=== PATIENT | male | born 1960 | race Two or more races ===

== ENCOUNTER 2016-04-23 09:53 | Outpatient (CLI) | payer BC, OTHER ==
[~2016-04-23 09:53] MED LIST: PANT40VI IV
[2016-04-23 10:56] LABS: ADD UA MICROSCOPIC NO; KETONES,URINE NEGATIVE (NEGATIVE); LEUKOCYTE ESTERASE ,URINE NEGATIVE (NEGATIVE)
[2016-04-23 11:07] LABS: ALBUMIN 3.8 g/dL (3.4-5.0); BILIRUBIN,TOTAL 0.5 mg/dL (0.2-1.0); CALCIUM, SERUM 8.9 mg/dL (8.5-10.1); CREATININE 0.9 mg/dL (0.6-1.3); POTASSIUM 5.4 mmol/L (3.5-5.1); TOTAL PROTEIN, SERUM 7.8 g/dL (6.4-8.2)
[2016-04-23 11:17] LABS: THYROID STIMULATING HORMONE 6.21 uIU/mL (0.358-3.74)
== END 2016-04-23 23:59 | disposition home or self-care (01) ==
LOC: LAB 09:53
PROVIDERS: ATTEND Family Medicine
DX: Z00.01 Encounter for general adult medical examination with abnormal findings (principal); R00.0 Tachycardia, unspecified; Z12.11 Encounter for screening for malignant neoplasm of colon
CPT/HCPCS: 36415; 80053-TC; 80061-TC; 81000-TC; 82272-TC; 84436-TC; 84443-TC; 93307-TC

== ENCOUNTER 2016-05-02 09:59 | Outpatient (CLI) | payer BC, OTHER ==
[2016-05-03 14:11] LABS: THYROID PEROXIDASE (TPO) AB >600 IU/mL (0-34)
[2016-05-07 03:08] LABS: *THYROGLOBULIN 51.9 IU/mL (0.0-0.9)
== END 2016-05-02 23:59 | disposition home or self-care (01) ==
LOC: LAB 09:59
PROVIDERS: ATTEND Family Medicine
DX: I51.7 Cardiomegaly (principal); R68.84 Jaw pain; E03.9 Hypothyroidism, unspecified
CPT/HCPCS: 36415; 70110-TC; 71010-TC; 86376

== ENCOUNTER 2016-05-06 08:51 | Outpatient (CLI) | payer BC, OTHER | END 2016-05-06 23:59 | disposition home or self-care (01) | LOC: US 08:51 | PROVIDERS: ATTEND Family Medicine | DX: E03.9 Hypothyroidism, unspecified (principal); E04.2 Nontoxic multinodular goiter | CPT/HCPCS: 76536-TC ==

== ENCOUNTER 2016-06-09 08:47 | Outpatient (CLI) | payer BC, OTHER | END 2016-06-09 23:59 | disposition home or self-care (01) | LOC: RAD 08:47 | PROVIDERS: ATTEND Family Medicine | DX: E04.1 Nontoxic single thyroid nodule (principal) | CPT/HCPCS: 78014; A9516 ==

== ENCOUNTER 2016-08-07 08:32 | Outpatient (CLI) | payer BC, OTHER ==
[2016-08-07 09:44] LABS: CHOLESTEROL 154 mg/dL (<200); HDL CHOLESTEROL 49 mg/dL (40-60); LDL 87 mg/dL (0-99); TRIGLYCERIDES 79 mg/dL (30-150)
== END 2016-08-07 23:59 | disposition home or self-care (01) ==
LOC: LAB 08:32
PROVIDERS: ATTEND Family Medicine
DX: E78.5 Hyperlipidemia, unspecified (principal); E55.9 Vitamin D deficiency, unspecified; R73.01 Impaired fasting glucose
CPT/HCPCS: 36415; 80061-TC; 82306

== ENCOUNTER 2016-09-15 08:42 | Outpatient (CLI) | payer BC, OTHER ==
[2016-09-15 09:24] LABS: CREATININE 0.9 mg/dL (0.6-1.3); POTASSIUM 4.2 mmol/L (3.5-5.1)
== END 2016-09-15 23:59 | disposition home or self-care (01) ==
LOC: LAB 08:42
PROVIDERS: ATTEND Family Medicine
DX: R73.01 Impaired fasting glucose (principal)
CPT/HCPCS: 36415; 80048-TC

== ENCOUNTER 2016-09-18 15:30 | Outpatient (CLI) | payer BC, OTHER | END 2016-09-18 23:59 | disposition home or self-care (01) | LOC: US 15:30 | DX: E04.1 Nontoxic single thyroid nodule (principal) | CPT/HCPCS: 76942-TC ==

== ENCOUNTER 2017-09-18 08:19 | Outpatient (CLI) | payer BC, OTHER ==
[2017-09-18 09:37] LABS: BASOPHILS % (AUTO) 0.8 % (0.0-2.0); HEMATOCRIT 43 % (39-51); HEMOGLOBIN 14.5 g/dL (13.5-17.5); LYMPHOCYTES # (AUTO) 1.4 /CMM (0.8-4.8); LYMPHOCYTES % (AUTO) 30.2 % (20.0-44.0); MEAN CORPUSCULAR HGB CONC 34 g/dl (31.0-36.0); MEAN CORPUSCULAR VOLUME 93 fL (80-96); MONOCYTES # (AUTO) 0.6 /CMM (0.1-1.30); MONOCYTES % (AUTO) 11.8 % (2.0-12.0); NEUTROPHILS # (AUTO) 2.6 /CMM (1.8-8.9); NEUTROPHILS % (AUTO) 54.2 % (43.0-81.0); PLATELET COUNT (AUTO) 276 /CMM (150-450); RDW COEFFICIENT OF VARIATION 13.1 (11.5-15.0); RED BLOOD CELL COUNT(AUTO) 4.63 MIL/uL (4.5-6.0); WHITE BLOOD COUNT (AUTO) 4.7 K/uL (4.3-11.0)
[2017-09-18 10:10] LABS: ALBUMIN 3.6 g/dL (3.4-5.0); BILIRUBIN,TOTAL 0.7 mg/dL (0.2-1.0); CALCIUM, SERUM 8.9 mg/dL (8.5-10.1); CREATININE 0.9 mg/dL (0.6-1.3); POTASSIUM 4.1 mmol/L (3.5-5.1); TOTAL PROTEIN, SERUM 7.7 g/dL (6.4-8.2)
[2017-09-18 10:18] LABS: FREE T4 (FREE THYROXINE) 0.88 ng/dL (0.76-1.46); THYROID STIMULATING HORMONE 9.913 uIU/mL (0.358-3.74)
== END 2017-09-18 23:59 | disposition home or self-care (01) ==
LOC: LAB 08:19
PROVIDERS: ATTEND Family Medicine
DX: E03.9 Hypothyroidism, unspecified (principal)
CPT/HCPCS: 36415; 80053-TC; 80061-TC; 82306; 84439-TC; 84443-TC; 85025-TC

== ENCOUNTER 2017-10-23 09:01 | Outpatient (CLI) | payer BC | END 2017-10-23 23:59 | disposition home or self-care (01) | LOC: CT 09:01 | PROVIDERS: ATTEND Family Medicine | DX: R09.89 Other specified symptoms and signs involving the circulatory and respiratory systems (principal) | CPT/HCPCS: 70450-TC ==

== ENCOUNTER 2017-12-04 09:27 | Outpatient (CLI) | payer BC ==
[2017-12-04 10:36] LABS: EOSINOPHILS % (AUTO) 3.3 % (0.0-6.0); HEMATOCRIT 42 % (39-51); HEMOGLOBIN 14.1 g/dL (13.5-17.5); LYMPHOCYTES # (AUTO) 1.3 /CMM (0.8-4.8); LYMPHOCYTES % (AUTO) 27.2 % (20.0-44.0); MEAN CORPUSCULAR HEMOGLOBIN 31 PG (26.0-33.0); MEAN CORPUSCULAR HGB CONC 33 g/dl (31.0-36.0); MEAN CORPUSCULAR VOLUME 93 fL (80-96); MONOCYTES # (AUTO) 0.4 /CMM (0.1-1.30); MONOCYTES % (AUTO) 8.8 % (2.0-12.0); NEUTROPHILS # (AUTO) 2.9 /CMM (1.8-8.9); NEUTROPHILS % (AUTO) 59.7 % (43.0-81.0); PLATELET COUNT (AUTO) 291 /CMM (150-450); RDW COEFFICIENT OF VARIATION 13.4 (11.5-15.0); RED BLOOD CELL COUNT(AUTO) 4.52 MIL/uL (4.5-6.0); WHITE BLOOD COUNT (AUTO) 4.8 K/uL (4.3-11.0)
[2017-12-04 10:39] LABS: APPEARANCE,URINE CLEAR (CLEAR); BILIRUBIN,URINE NEGATIVE (NEGATIVE); BLOOD, URINE NEGATIVE Ery/uL (NEGATIVE); COLOR,URINE YELLOW (YELLOW); KETONES,URINE NEGATIVE (NEGATIVE); LEUKOCYTE ESTERASE ,URINE NEGATIVE (NEGATIVE); NITRITE, URINE NEGATIVE (NEGATIVE); PH,URINE 6.5 (5.0-8.0); PROTEIN,URINE NEGATIVE (NEGATIVE); UGLUCOSE NEGATIVE (NEGATIVE); UROBILINOGEN,URINE 0.2 EU/dL (0.2)
[2017-12-04 10:54] LABS: ALBUMIN 3.6 g/dL (3.4-5.0); BILIRUBIN,TOTAL 0.6 mg/dL (0.2-1.0); CALCIUM, SERUM 8.3 mg/dL (8.5-10.1); POTASSIUM 4.1 mmol/L (3.5-5.1); TOTAL PROTEIN, SERUM 7.6 g/dL (6.4-8.2)
[2017-12-04 10:59] LABS: FREE T4 (FREE THYROXINE) 0.92 ng/dL (0.76-1.46); THYROID STIMULATING HORMONE 5.412 uIU/mL (0.358-3.74)
== END 2017-12-04 23:59 | disposition home or self-care (01) ==
LOC: LAB 09:27
PROVIDERS: ATTEND Family Medicine
DX: Z00.01 Encounter for general adult medical examination with abnormal findings (principal); Z11.59 Encounter for screening for other viral diseases; M19.90 Unspecified osteoarthritis, unspecified site
CPT/HCPCS: 36415; 71046; 80053-TC; 80061-TC; 81000-TC; 82306; 84439-TC; 84443-TC; 85025-TC; 86803

== ENCOUNTER 2019-03-08 08:49 | Outpatient (CLI) | payer BC ==
[2019-03-08 09:32] LABS: CREATININE 0.9 mg/dL (0.6-1.3)
== END 2019-03-08 23:59 | disposition home or self-care (01) ==
LOC: LAB 08:49
PROVIDERS: ATTEND Family Medicine
DX: R20.9 Unspecified disturbances of skin sensation (principal); M19.90 Unspecified osteoarthritis, unspecified site; Z87.891 Personal history of nicotine dependence
CPT/HCPCS: 36415; 82565-TC; 84520-TC

== ENCOUNTER 2019-03-14 13:58 | Outpatient (CLI) | payer BC | END 2019-03-14 23:59 | disposition home or self-care (01) | LOC: MRI 13:58 | PROVIDERS: ATTEND Family Medicine | DX: M48.061 Spinal stenosis, lumbar region without neurogenic claudication (principal); M48.07 Spinal stenosis, lumbosacral region; M51.27 Other intervertebral disc displacement, lumbosacral region; M47.812 Spondylosis without myelopathy or radiculopathy, cervical region; G93.0 Cerebral cysts; M53.87 Other specified dorsopathies, lumbosacral region; M25.78 Osteophyte, vertebrae; M89.48 Other hypertrophic osteoarthropathy, other site; M12.88 Other specific arthropathies, not elsewhere classified, other specified site; M46.02 Spinal enthesopathy, cervical region; M48.02 Spinal stenosis, cervical region; J34.89 Other specified disorders of nose and nasal sinuses; Z87.891 Personal history of nicotine dependence | CPT/HCPCS: 70551-TC; 72141-TC; 72148-TC ==

== ENCOUNTER 2019-09-20 08:41 | Outpatient (CLI) | payer BC | END 2019-09-20 23:59 | disposition home or self-care (01) | LOC: CT 08:41 | PROVIDERS: ATTEND Family Medicine | DX: G93.0 Cerebral cysts (principal) | CPT/HCPCS: 70450-TC ==

== ENCOUNTER 2020-12-25 10:30 | Outpatient (CLI) | payer BC ==
[2020-12-25 16:11] LABS: BASOPHILS % (AUTO) 0.6 % (0.0-2.0); EOSINOPHILS % (AUTO) 1.7 % (0.0-6.0); HEMATOCRIT 43 % (39-51); HEMOGLOBIN 14.4 g/dL (13.5-17.5); LYMPHOCYTES # (AUTO) 1.3 K/uL (0.8-4.8); LYMPHOCYTES % (AUTO) 27.9 % (20.0-44.0); MEAN CORPUSCULAR HGB CONC 33 g/dl (31.0-36.0); MEAN CORPUSCULAR VOLUME 96 fL (80-96); MONOCYTES # (AUTO) 0.5 K/uL (0.1-1.30); MONOCYTES % (AUTO) 10.4 % (2.0-12.0); NEUTROPHILS # (AUTO) 2.7 K/uL (1.8-8.9); NEUTROPHILS % (AUTO) 59.4 % (43.0-81.0); PLATELET COUNT (AUTO) 275 K/uL (150-450); RED BLOOD CELL COUNT(AUTO) 4.54 MIL/uL (4.5-6.0); WHITE BLOOD COUNT (AUTO) 4.5 K/uL (4.3-11.0)
[2020-12-25 16:21] LABS: BILIRUBIN,URINE NEGATIVE (NEGATIVE); COLOR,URINE YELLOW (YELLOW); LEUKOCYTE ESTERASE ,URINE NEGATIVE (NEGATIVE); NITRITE, URINE NEGATIVE (NEGATIVE); PROTEIN,URINE NEGATIVE (NEGATIVE); UGLUCOSE NEGATIVE (NEGATIVE); UROBILINOGEN,URINE 0.2 EU/dL (0.2)
[2020-12-25 16:37] LABS: PROSTATE SPECIFIC ANTIGEN SCR 0.89 ng/mL (0.00-4.00); THYROID STIMULATING HORMONE 7.171 uIU/mL (0.358-3.74); URIC ACID 5.9 mg/dL (2.6-7.2)
[2020-12-25 16:53] LABS: ALBUMIN 3.9 g/dL (3.4-5.0); BILIRUBIN,TOTAL 0.6 mg/dL (0.2-1.0); CALCIUM, SERUM 8.5 mg/dL (8.5-10.1); CREATININE 0.8 mg/dL (0.6-1.3); POTASSIUM 4.2 mmol/L (3.5-5.1); TOTAL PROTEIN, SERUM 7.8 g/dL (6.4-8.2)
[2020-12-26 05:07] LABS: T3, FREE 2.7 pg/mL (2.0-4.4)
== END 2020-12-25 23:59 | disposition home or self-care (01) ==
LOC: LAB 10:30
PROVIDERS: ATTEND Family Medicine
DX: E78.2 Mixed hyperlipidemia (principal); E03.9 Hypothyroidism, unspecified; E55.9 Vitamin D deficiency, unspecified; Z00.00 Encounter for general adult medical examination without abnormal findings; Z79.899 Other long term (current) drug therapy
CPT/HCPCS: 36415; 80053-TC; 80061-TC; 82306; 82607-TC; 84153-TC; 84439-TC; 84443-TC; 84481; 84550-TC; 85025-TC

== ENCOUNTER 2021-03-11 13:00 | Outpatient (CLI) | payer BC | END 2021-03-11 23:59 | disposition home or self-care (01) | LOC: LAB 13:00 | PROVIDERS: ATTEND Family Medicine | DX: M47.816 Spondylosis without myelopathy or radiculopathy, lumbar region (principal); M48.07 Spinal stenosis, lumbosacral region; G62.9 Polyneuropathy, unspecified; M25.50 Pain in unspecified joint | CPT/HCPCS: 36415; 72148-TC; 84550-TC; 85652-TC; 86431-TC ==

== ENCOUNTER 2021-10-30 14:26 | Outpatient (CLI) | payer BC | END 2021-10-30 23:59 | disposition home or self-care (01) | LOC: MRI 14:26 | PROVIDERS: ATTEND Family Medicine | DX: Z75.3 Unavailability and inaccessibility of health-care facilities (principal) ==

== ENCOUNTER 2022-04-16 11:22 | Outpatient (CLI) | payer BC ==
[2022-04-16 12:19] LABS: BASOPHILS % (AUTO) 0.4 % (0.0-2.0); EOSINOPHILS % (AUTO) 0.2 % (0.0-6.0); HEMATOCRIT 42 % (39-51); HEMOGLOBIN 13.9 g/dL (13.5-17.5); LYMPHOCYTES # (AUTO) 1.3 K/uL (0.8-4.8); LYMPHOCYTES % (AUTO) 10.2 % (20.0-44.0); MEAN CORPUSCULAR HGB CONC 33 g/dl (31.0-36.0); MEAN CORPUSCULAR VOLUME 93 fL (80-96); MONOCYTES # (AUTO) 1.1 K/uL (0.1-1.30); NEUTROPHILS % (AUTO) 80.2 % (43.0-81.0); PLATELET COUNT (AUTO) 254 K/uL (150-450); RED BLOOD CELL COUNT(AUTO) 4.54 MIL/uL (4.5-6.0); WHITE BLOOD COUNT (AUTO) 12.5 K/uL (4.3-11.0)
[2022-04-16 12:27] LABS: BILIRUBIN,URINE NEGATIVE (NEGATIVE); COLOR,URINE YELLOW (YELLOW); LEUKOCYTE ESTERASE ,URINE 3+ (NEGATIVE); NITRITE, URINE POSITIVE (NEGATIVE); PH,URINE 7.5 (5.0-8.0); PROTEIN,URINE NEGATIVE (NEGATIVE); UGLUCOSE NEGATIVE (NEGATIVE); UROBILINOGEN,URINE 0.2 EU/dL (0.2)
[2022-04-16 12:40] LABS: ALBUMIN 3.7 g/dL (3.4-5.0); BILIRUBIN,TOTAL 1.1 mg/dL (0.2-1.0); CALCIUM, SERUM 9.1 mg/dL (8.5-10.1); CREATININE 1.1 mg/dL (0.6-1.3); POTASSIUM 4.4 mmol/L (3.5-5.1); TOTAL PROTEIN, SERUM 7.9 g/dL (6.4-8.2)
[2022-04-16 13:04] LABS: BACTERIA,URINE Many /HPF (None Seen); SQUAMOUS EPITHELIAL CELL,UR Moderate /HPF (None Seen); WBC,URINE TOO NUMEROUS TO COUN /HPF (0-3)
== END 2022-04-16 23:59 | disposition home or self-care (01) ==
LOC: LAB 11:22
PROVIDERS: ATTEND Family Medicine
DX: R50.9 Fever, unspecified (principal)
CPT/HCPCS: 36415; 80053-TC; 81001; 85025-TC; 87086-TC

== ENCOUNTER 2022-04-21 08:55 | Outpatient (CLI) | payer BC ==
[2022-04-21] MEDS ORDERED: IOHEXOL-300 100 ML VIAL IV ONE (09:10)
== END 2022-04-21 23:59 | disposition home or self-care (01) ==
LOC: CT 08:55
PROVIDERS: ATTEND Family Medicine
DX: N43.3 Hydrocele, unspecified (principal); R31.9 Hematuria, unspecified; M47.816 Spondylosis without myelopathy or radiculopathy, lumbar region
CPT/HCPCS: 74178; Q9967

== ENCOUNTER 2022-05-05 08:46 | Emergency (ER) | payer BC ==
[~2022-05-05] VITALS: Ht 185.4 cm; Wt 83.9 kg
--- NOTE | 2022-05-05 09:03 | NUR ---
left testicular pain x 4 days
--- NOTE | 2022-05-05 09:09 | NUR ---
the patient just finished his 10 day course of PO antibiotics - Rx by Dr. Garcia
[2022-05-05 10:05] LABS: BASOPHILS # (AUTO) 0.1 K/uL (0.0-0.2); BASOPHILS % (AUTO) 0.5 % (0.0-2.0); EOSINOPHILS % (AUTO) 0.6 % (0.0-6.0); HEMATOCRIT 38 % (39-51); HEMOGLOBIN 12.7 g/dL (13.5-17.5); LYMPHOCYTES # (AUTO) 1.1 K/uL (0.8-4.8); LYMPHOCYTES % (AUTO) 9.3 % (20.0-44.0); MEAN CORPUSCULAR HGB CONC 33 g/dl (31.0-36.0); MEAN CORPUSCULAR VOLUME 92 fL (80-96); MONOCYTES # (AUTO) 1.2 K/uL (0.1-1.30); MONOCYTES % (AUTO) 10.5 % (2.0-12.0); NEUTROPHILS # (AUTO) 8.9 K/uL (1.8-8.9); NEUTROPHILS % (AUTO) 79.1 % (43.0-81.0); PLATELET COUNT (AUTO) 301 K/uL (150-450); RED BLOOD CELL COUNT(AUTO) 4.16 MIL/uL (4.5-6.0); WHITE BLOOD COUNT (AUTO) 11.3 K/uL (4.3-11.0)
[2022-05-05 10:08] LABS: CALCIUM, SERUM 8.8 mg/dL (8.5-10.1); POTASSIUM 3.9 mmol/L (3.5-5.1)
--- NOTE | 2022-05-05 10:30 | NUR ---
Urine specimen sent to lab
[2022-05-05] MEDS ORDERED: CIPR-262 PO (10:35)
[2022-05-05] MEDS ORDERED: IBUP-1957 PO (10:35)
[2022-05-05] MEDS ORDERED: IBUPROFEN 600 MG TABLET ONE (10:37)
[2022-05-05] MEDS: IBUPROFEN 600 MG TABLET PO ONE (10:38)
--- NOTE | 2022-05-05 10:38 | NUR ---
Motrin 600 mg p.o. given as ordered by Dr. Nolasco
--- NOTE | 2022-05-05 10:53 | NUR ---
Patient discharged to home in stable condition. Written and verbal after care instructions given. Patient verbalizes understanding of instruction.
[2022-05-05 10:54] VITALS: BP 128/79
[2022-05-05 11:19] LABS: BILIRUBIN,URINE NEGATIVE (NEGATIVE); COLOR,URINE YELLOW (YELLOW); LEUKOCYTE ESTERASE ,URINE 3+ (NEGATIVE); NITRITE, URINE POSITIVE (NEGATIVE); PROTEIN,URINE NEGATIVE (NEGATIVE); UGLUCOSE NEGATIVE (NEGATIVE); UROBILINOGEN,URINE 0.2 EU/dL (0.2)
[2022-05-05 11:49] LABS: BACTERIA,URINE Many /HPF (None Seen); SQUAMOUS EPITHELIAL CELL,UR Rare /HPF (None Seen); WBC,URINE TOO NUMEROUS TO COUN /HPF (0-3)
== END 2022-05-05 10:54 | disposition home or self-care (01) ==
LOC: ER 08:46
DX: N45.1 Epididymitis (principal); Z79.899 Other long term (current) drug therapy
CPT/HCPCS: 36415; 76870-TC; 80048-TC; 81001; 85025-TC; 87086-TC

== ENCOUNTER 2022-08-15 14:15 | Outpatient (CLI) | payer BC ==
[~2022-08-15 14:15] MED LIST changes: +CIPR-262 PO; +IBUP-1957 PO
== END 2022-08-15 23:59 | disposition home or self-care (01) ==
LOC: RAD 14:15
PROVIDERS: ATTEND Family Medicine
DX: M79.672 Pain in left foot (principal)
CPT/HCPCS: 73630-TC

== ENCOUNTER 2022-08-25 13:13 | Outpatient (CLI) | payer BC | END 2022-08-25 23:59 | disposition home or self-care (01) | LOC: MRI 13:13 | PROVIDERS: ATTEND Family Medicine | DX: M19.071 Primary osteoarthritis, right ankle and foot (principal); M25.511 Pain in right shoulder; M25.571 Pain in right ankle and joints of right foot; M25.774 Osteophyte, right foot; M25.871 Other specified joint disorders, right ankle and foot | CPT/HCPCS: 73221-TC; 73718-TC; 73721-TC ==

== ENCOUNTER 2022-09-02 09:00 | Outpatient (CLI) | payer BC | END 2022-09-02 23:59 | disposition home or self-care (01) | LOC: WOU 09:00 | PROVIDERS: ATTEND Podiatrist Foot & Ankle Surgery | DX: M72.2 Plantar fascial fibromatosis (principal); M77.32 Calcaneal spur, left foot; M79.672 Pain in left foot | CPT/HCPCS: G0463 ==